=== PATIENT | female | born 1990 | race Caucasian/White ===

== ENCOUNTER 2022-03-18 22:27 | Emergency (ER) | payer SELFPAY ==
[~2022-03-18] VITALS: Ht 160 cm; Wt 71.0 kg
[2022-03-18 22:42] VITALS: BP 104/58
== END 2022-03-18 23:42 | disposition home or self-care (01) ==
LOC: ER 22:31
DX: F41.9 Anxiety disorder, unspecified (principal)
CPT/HCPCS: 99283